=== PATIENT | female | born 1995 | race Caucasian/White ===

== ENCOUNTER 2019-10-09 00:57 | Emergency (ER) | payer SELFPAY ==
[2019-10-09] MEDS ORDERED: SODIUM CHLORIDE 0.9% 1000ML 1,000 ML IVS ONE (01:11)
[2019-10-09] MEDS ORDERED: MORPHINE SULFATE INJ 10 MG/ML VIAL IV ONE ×2 (01:11→02:00)
[2019-10-09] MEDS ORDERED: TERBUTALINE SULFATE SUBCU ONE (01:13)
--- NOTE | 2019-10-09 01:30 | ED.PDOC ---
History of Present Illness - General Chief Complaint: SYSTEMS LEAD Problem Time Seen by Provider: 10/09/19 01:10 Source: patient Exam Limitations: no limitations - History of Present Illness Initial Comments: The patient is a 23-year-old female presented emergency room secondary to lower abdominal cramping that started about 2 to 3 hours prior to arrival. The patient is . She is unsure how far along. Fundal height is 29 cm. No symptoms prior. No care. Patient denies significant past medical problems. This is her first . Cervical exam shows 2 cm, 90% effacement, -1 station, bag of water intact, cephalic. Ultrasound shows a posterior placenta with 5 to 6 cm of amniotic fluid. Heart tones are in the 130s to 140s. No significant vaginal discharge. No pooling. Timing/Duration: 1-3 hours Severity: severe Improving Factors: nothing Worsening Factors: nothing Associated Symptoms: denies symptoms Allergies/Adverse Reactions: Allergies NO KNOWN ALLERGY Allergy (Verified 10/13/15 08:29) Home Medications: Ambulatory Orders Acetamin W/Cod #3 Tab [Tylenol w/CODEINE #3] 1 ea PO Q6HR PRN #15 tab 10/13/15 Promethazine Tab [Phenergan Tablet] 25 mg PO Q4HR PRN #10 tab 10/13/15 Sulfa/Trimeth 800/160 (Ds) Tab [Bactrim DS Tab] 1 ea PO BID #14 tab 10/13/15 Review of Systems - Review of Systems Constitutional: States: no symptoms reported EENTM: States: no symptoms reported Respiratory: States: no symptoms reported Cardiology: States: no symptoms reported Gastrointestinal/Abdominal: States: abdominal pain Genitourinary: States: no symptoms reported Musculoskeletal: States: no symptoms reported Skin: States: no symptoms reported Neurological: States: no symptoms reported All other Systems: No Change from Baseline Past Medical History (General) - Patient Medical History Hx Seizures: No Hx Stroke: No Hx Dementia: No Hx Asthma: No Hx of COPD: No Hx Cardiac Disorders: No Hx Congestive Heart Failure: No Hx Pacemaker: No Hx Hypertension: No Hx Thyroid Disease: No Hx Diabetes: No Hx Gastroesophageal Reflux: No Hx Renal Disease: No Hx Cancer: No Hx of HIV: No Hx Hepatitis C: No Hx MRSA: No - Vaccination History Hx Tetanus, Diphtheria Vaccination: Yes Hx Influenza Vaccination: No Hx Pneumococcal Vaccination: No - Social History Hx Tobacco Use: No Hx Chewing Tobacco Use: No Hx Alcohol Use: No Hx Substance Use: No Hx Substance Use Treatment: No Hx Depression: No Hx Physical Abuse: No Hx Emotional Abuse: No Hx Suspected Abuse: No - Female History Hx Last Menstrual Period: 10/13/15 Patient : No Family Medical History - Family History Mother Family History: No Known Living Status: Still Living Physical Exam - Physical Exam General Appearance: Alert, Obvious distress Eye Exam: bilateral normal Ears, Nose, Throat: hearing grossly normal, normal pharynx Neck: full range of motion, supple Respiratory: lungs clear, normal breath sounds, no respiratory distress, no accessory muscle use Cardiovascular/Chest: normal peripheral pulses, regular rate, rhythm, no edema Peripheral Pulses: radial,right: 2+, radial,left: 2+ Gastrointestinal/Abdominal: soft, other - Gravid. Contractions palpable. Patient is very thin. Rectal Exam: deferred Back Exam: no CVA tenderness, no vertebral tenderness Extremity: normal range of motion, non-tender, normal inspection, no pedal edema, normal capillary refill Neurologic: check scaler II-XII nml as tested, alert, normal mood/affect, oriented x 3 Skin Exam: normal color Progress - Progress Progress: 10/09/19 01:30 The patient is a 23-year-old G1, P0 at approximately 29 weeks by fundal height alone. Patient is presenting in obvious labor. No rupture of membranes and no obvious bleeding. No evidence of obvious distress on cursory ultrasound and auscultation. Patient is being transferred to [facility] for care with OBgyn and adjacent NICU. The patient is receiving a liter of IV fluids along with a dose of morphine and terbutaline. Vital signs are stable at this point. Source of labor is not determined. The patient also received a dose of 20 mg of nifedipine about 40 minutes after the terbutaline. Contractions have spaced out. She also received 1 dose of 12 mg of betamethasone IM. marty hernandez [id number] 10/09/19 01:46 - Results/Orders Results/Orders: Laboratory Tests 10/09/19 10/09/19 10/09/19 01:18 01:18 01:18 WBC 8.6 RBC 4.40 Hgb 14.0 Hct 39.8 MCV 90.3 MCH 31.8 H MCHC 35.2 RDW 13.1 Plt Count 263 MPV 8.6 Absolute Neuts (auto) 6.00 Absolute Lymphs (auto) 1.80 Absolute Monos (auto) 0.60 Absolute Eos (auto) 0.10 Absolute Basos (auto) 0.10 Neutrophils % 69.7 Lymphocytes % 21.3 Monocytes % 7.1 Eosinophils % 1.2 Basophils % 0.7 PT 8.9 L INR < 1.00 PTT (SP) 24.5 Sodium 136 Potassium 3.9 Chloride 101 Carbon Dioxide 21 Anion Gap 17.9 BUN 13 Creatinine 0.89 BUN/Creatinine Ratio 14.6 Random Glucose 85 Serum Osmolality 271.3 L Calcium 9.0 Total Bilirubin 0.7 AST 28 ALT 28 Alkaline Phosphatase 238 H Serum Total Protein 7.7 Albumin 3.4 Globulin 4.3 H Albumin/Globulin Ratio 0.8 L Patient ABO/Rh 10/09/19 01:18 WBC RBC Hgb Hct MCV MCH MCHC RDW Plt Count MPV Absolute Neuts (auto) Absolute Lymphs (auto) Absolute Monos (auto) Absolute Eos (auto) Absolute Basos (auto) Neutrophils % Lymphocytes % Monocytes % Eosinophils % Basophils % PT INR PTT (SP) Sodium Potassium Chloride Carbon Dioxide Anion Gap BUN Creatinine BUN/Creatinine Ratio Random Glucose Serum Osmolality Calcium Total Bilirubin AST ALT Alkaline Phosphatase Serum Total Protein Albumin Globulin Albumin/Globulin Ratio Patient ABO/Rh O POSITIVE Departure - Departure Clinical Impression: labor Qualifiers: labor trimester: third trimester labor delivery status: without delivery Qualified Code(s): O60.03 - labor without delivery, third tr imester Disposition: Transfer to Hospital Condition: Fair Departure Forms: ED Discharge - Pt. Copy, Patient Portal Self Enrollment Home Medications: Ambulatory Orders Acetamin W/Cod #3 Tab [Tylenol w/CODEINE #3] 1 ea PO Q6HR PRN #15 tab 10/13/15 Promethazine Tab [Phenergan Tablet] 25 mg PO Q4HR PRN #10 tab 10/13/15 Sulfa/Trimeth 800/160 (Ds) Tab [Bactrim DS Tab] 1 ea PO BID #14 tab 10/13/15 Transfer to Outside Facility - Transfer Information Decision to Transfer Date: 10/09/19 Decision to Transfer Time: 01:33 Reason for Transfer: required specialist not available Accepting Provider:: dr calvillo Accepting Facility: [facility]
[2019-10-09] MEDS ORDERED: BETAMETHASONE ACETATE/BETAMETH 6 MG/ML VIAL IM ONE (01:36)
[2019-10-09] MEDS ORDERED: NIFEdipine 10 MG CAP PO ONE (01:37)
[2019-10-09 01:38] VITALS: TEMP 99.2
[2019-10-09 01:55] VITALS: BP 109/71; O2SAT 97
[2019-10-09] MEDS ORDERED: MORPHINE SULFATE INJ 10 MG/ML VIAL ONE (02:01)
[2019-10-09] MEDS ORDERED: TERBUTALINE SULFATE ONE (02:05)
== END 2019-10-09 02:10 | disposition short-term general hospital (02) ==
LOC: ER 00:57
DX: O60.03 Preterm labor without delivery, third trimester (principal); Z3A.29 29 weeks gestation of pregnancy
CPT/HCPCS: 36415; 80053; 81001; 85025; 85610; 85730; 86900; 86901; J2270; J3105; J7030

== ENCOUNTER 2020-03-15 00:17 | Emergency (ER) | payer MEDICAID, OTHER ==
[2020-03-15 00:28] VITALS: O2SAT 97
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
[2020-03-15] MEDS: IBUPROFEN 200 MG TAB PO ONE (01:26)
[2020-03-15 01:29] VITALS: BP 128/84; TEMP 98.2
== END 2020-03-15 01:29 ==
LOC: ER 00:17
DX: S80.811A Abrasion, right lower leg, initial encounter (principal); S80.812A Abrasion, left lower leg, initial encounter; R51.9 Headache, unspecified; F41.9 Anxiety disorder, unspecified; F32.9 Major depressive disorder, single episode, unspecified; V47.0XXA Car driver injured in collision with fixed or stationary object in nontraffic accident, initial encounter; Y92.410 Unspecified street and highway as the place of occurrence of the external cause; Y93.C2 Activity, hand held interactive electronic device